=== PATIENT | female | born 1985 | race Hispanic/Latino ===

== ENCOUNTER 2017-10-21 08:22 | Emergency (ER) | payer BC, OTHER ==
[2017-10-21] MEDS ORDERED: LIDOCAINE HCL-MPF 1% 2ML VIAL ONE (11:40)
[2017-10-21] MEDS ORDERED: CEFTRIAXONE SODIUM 500 MG VIAL ONE (11:40)
[2017-10-21] MEDS ORDERED: AZITHROMYCIN 250 MG TABLET PO ONE (11:41)
== END 2017-10-21 12:09 | disposition home or self-care (01) ==
LOC: EDH 08:22
DX: T83.32XA Displacement of intrauterine contraceptive device, initial encounter (principal); N72 Inflammatory disease of cervix uteri; B37.3 Candidiasis of vulva and vagina; K59.00 Constipation, unspecified; Z98.890 Other specified postprocedural states
CPT/HCPCS: 76830; 76856; 87210; 87486; 87797; 96372; 99285; J0696; J3490

== ENCOUNTER 2018-12-31 21:31 | Emergency (ER) | payer BC ==
[2018-12-31] MEDS ORDERED: DIPHENHYDRAMINE HCL 25 MG CAPSULE ONE (21:54)
[2018-12-31] MEDS ORDERED: FAMOTIDINE 20MG TAB 20 MG TAB ONE (21:54)
[2018-12-31] MEDS ORDERED: DEXAMETHASONE SOD PHOSPHATE 10MG/ML 1ML VIAL ONE (21:54)
== END 2018-12-31 23:27 | disposition home or self-care (01) ==
LOC: EDH 21:31
DX: L50.0 Allergic urticaria (principal); Z98.890 Other specified postprocedural states; Z79.899 Other long term (current) drug therapy
CPT/HCPCS: 96372; 99284; J1100; Q0163

== ENCOUNTER 2019-10-06 14:40 | Emergency (ER) | payer BC | END 2019-10-06 17:22 | disposition home or self-care (01) | LOC: EDH 14:40 | DX: S90.112A Contusion of left great toe without damage to nail, initial encounter (principal); Z91.018 Allergy to other foods; X58.XXXA Exposure to other specified factors, initial encounter; Y93.89 Activity, other specified; Y92.098 Other place in other non-institutional residence as the place of occurrence of the external cause; Y99.8 Other external cause status; Z98.890 Other specified postprocedural states | CPT/HCPCS: 73660 ==